=== PATIENT | male | born 1980 | race African-American/Black ===

== ENCOUNTER 2016-12-08 22:18 | Emergency (ER) | payer SELFPAY ==
[2016-12-08 22:30] VITALS: TEMP 98; BMI 23.7
[2016-12-09] MEDS ORDERED: ACETAMINOPHEN 325 MG/TAB TABLET PO ONE (00:15)
--- NOTE | 2016-12-09 00:15 | EDPRACDOC ---
<Darek Martinez - Last Filed: 12/09/16 00:44> - History of Present Illness Onset: 2 DAYS HPI: C/o toothache that radiates to both ears and nose x 2 days. denies fever, N/V/D , cough, sore throat. Med hx = none. Surgical hx = none. Pain Severity: Reports: Moderate Relevant History of: Reports: None Modifying Factors: improves with: None Associated Signs and Symptoms: Reports: Earache (bilat) <Jair Cordero - Last Filed: 12/09/16 04:17> - General Information Chief Complaint: Toothache Stated Complaint: TOOTHACHE Home Medications: Home Medications Ketorolac Tromethamine [Toradol] 10 mg PO Q6H PRN #20 tab 12/09/16 Penicillin [Pen Vee K] 250 mg PO TID #30 tablet 12/09/16 Allergies/Adverse Reactions: Allergies Allergy/AdvReac Type Severity Reaction Status Date / Time No Known Allergies Allergy Verified 12/08/16 22:30 ED Past Medical History - History Reviewed Yes Nurses notes reviewed and agree except as marked <Jair Cordero - Last Filed: 12/09/16 04:17> EDM Review of Systems - Review of Systems ROS Negative Except as Marked: Yes All systems reviewed and were negative except as marked Ears: Pain Throat: No Symptoms Reported Nose: Other (pain) Mouth: Tooth Pain <Jair Cordero - Last Filed: 12/09/16 04:17> - Physical Exam Last recorded Vital Signs: Last Vital Signs Temp 98 F 12/08/16 22:28 Pulse 103 12/08/16 22:28 Resp 20 12/08/16 22:28 BP 151/98 12/08/16 22:28 Pulse Ox 97 12/08/16 22:28 Oxygen Pulse Oxygen Saturation 97 O2 Device Room Air Oxygen Flow Rate Fraction of Inspired Oxygen ( FIO2) <Darek Martinez - Last Filed: 12/09/16 00:44> - Physical Exam Constitutional: Alert, Distress (pain) Oriented to: Time, Person, Place Last recorded Vital Signs: Last Vital Signs Temp 98 F 12/08/16 22:28 Pulse 103 12/08/16 22:28 Resp 20 12/08/16 22:28 BP 151/98 12/08/16 22:28 Pulse Ox 97 12/08/16 22:28 Oxygen Pulse Oxygen Saturation 97 O2 Device Room Air Oxygen Flow Rate Fraction of Inspired Oxygen ( FIO2) - HEENT Head: Normal Eye Exam: negative: Conjunctival Injection, Scleral Icterus Oropharynx: Normal TMJ: Normal Nose: Other (pain) Neck: Normal - Respiratory/Cardiovascular Respiratory: Normal - CTA Cardiovascular: Normal - GI Tenderness: Non tender - Musculoskeletal Back: Normal Extremities: Normal - Integumentary Skin: Normal - Neurologic Mood Description: Normal Thought: Coherent Perception: Normal <Jair Cordero - Last Filed: 12/09/16 04:17> ED Tooth Problem Exam - HEENT Face: Normal Gingiva: Tender, Swelling Palate: Normal Mouth Range of Motion: Normal Sinuses: Normal Oropharynx: Normal Neck: Normal <Jair Cordero - Last Filed: 12/09/16 04:17> Decision Time to Discharge: 00:44 - Departure Yes I personally saw and evaluated the patient. Disposition: Home Education/Counseling Given To: Patient Education/Counseling Given Regarding: Diagnosis, Treatment, Prognosis, Follow Up <Darek Martinez - Last Filed: 12/09/16 00:44> <Jair Cordero - Last Filed: 12/09/16 04:17> - Departure Condition: Good Final Diagnosis: Dental caries Pharyngitis Qualifiers: Pharyngitis/tonsillitis etiology: unspecified etiology Qualified Code(s): J02.9 - Acute pharyngitis, unspecified Instructions: Dental Caries (ED), Pharyngitis (ED) Referrals: None,No Provider [Primary Care Provider] - One Week [facility] [NonStaff] - One Week Prescriptions: Ketorolac Tromethamine [Toradol] 10 mg PO Q6H PRN #20 tab PRN Reason: Pain Penicillin [Pen Vee K] 250 mg PO TID #30 tablet
[2016-12-09] MEDS ORDERED: PENICILLIN 250 MG TAB PO ONE (00:44)
[2016-12-09 02:18] VITALS: BP 142/84; PULSE 98
== END 2016-12-09 01:30 | disposition home or self-care (01) ==
LOC: ED 22:18
DX: K02.9 Dental caries, unspecified (principal)
CPT/HCPCS: 99283; J3490